=== PATIENT | female | born 1970 | race Caucasian/White ===

== ENCOUNTER 2024-01-07 13:50 | Outpatient (RCR) | payer MEDICAID, SELFPAY | END 2024-01-28 23:59 | disposition home or self-care (01) | LOC: CPTX 13:50 | PROVIDERS: PCP Student in an Organized Health Care Education/Training Program; Referring Provider Student in an Organized Health Care Education/Training Program; Visit Provider Student in an Organized Health Care Education/Training Program | DX: Z53.9 Procedure and treatment not carried out, unspecified reason (principal) ==

== ENCOUNTER 2025-02-09 13:05 | Outpatient (AMB) | payer MEDICAID, SELFPAY ==
--- NOTE | 2025-02-09 13:21 | PD.ORTHCLVIS ---
Vital signs 02/09/25 13:22 Height 1.73 m Height Method Stated Weight 104.128 kg Weight Measurement Method Standing Scale BMI 34.9 BP 128/85 H Blood Pressure Source Automatic Cuff Blood Pressure Location Right Lower Arm Position Sitting Respiration 19 Pulse 83 Pulse Source Monitor Temp 97.3 F Temp Source Temporal Artery Scan Pulse Oximetry (%) 94 L Oxygen Delivery Method Room Air Med/Allergies Allergies & Medications Allergies No Known Allergies Allergy (Verified 02/09/25 13:23) Medication Reconciliation metoprolol tartrate 25 mg tablet 25 mg PO ##0 09/15/13 [History Confirmed 02/09/25] meclizine 25 mg tablet 25 mg PO BID PRN dizziness #30 tabs 04/04/22 [Rx Confirmed 02/09/25] meloxicam 7.5 mg tablet 7.5 mg PO QDAY #45 tabs 02/09/25 [Rx] Exam Exam Patient is in no acute distress and is cooperative with the examination today. Breathing is nonlabored. Patient has a normal mood and affect. Bilateral extremities were evaluated and demonstrates sensation intact to light touch. Palpable pedal pulses are present. No significant edema is present. Bilateral hips were examined. The patient has no pain with log roll of the hips. Internal rotation to 30 degrees and external rotation to 30 degrees is painless. Negative FADIR. Right knee was examined today. The right knee is in valgus alignment. Range of motion from 0-120 degrees. Knee is stable to varus and valgus as well as AP translation with <5mm. Patient has a negative McMurrays. There is no pain with patellofemoral compression and no crepitus noted. The knee is nontender to palpation. Left knee was examined today. The left knee is in valgus alignment. Range of motion from 0-115 degrees. Knee is stable to varus and valgus as well as AP translation with <5mm. Patient has a negative McMurrays. There is no pain with patellofemoral compression and no crepitus noted. The knee is tender to palpation diffiusely. Assessment and Plan Problem List (1) Arthritis of both knees: Status: Acute Plan: Patient is a pleasant 54yo female with bilateral knee osteoarthritis. 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) MA Intake Visit Data Collection New Patient or Established: New Patient (never been to [facility]) Reason for Visit:: BILATERAL KNEE PAIN Seen by Clinical Staff ONLY (RN/MA): No Manager Room Required: No PCP or OBGYN visit in last 3 months: Yes Hx Now: No Do You Feel Safe at Home: Yes Authorities Contacted: N/A Questionairres Past Medical History Past Medical History Have you ever been diagnosed with any of the following: Respiratory Problems Smoking: No Smoking Exposure: No Subjective Visit Visit for: new patient and knee (BILATERAL) Immunization / Flu Flu Vaccine in the Last 12 Months: Yes Flu Vaccine Exclusion Criteria: Already Received History of Present Illness Chief complaint: bilateral knee pain Alisa is a 54 yo female with bilateral knee pain and osteoarthritis. She has not tried significant conservative treatment. She has tried only ibuprofen and no injections. Pain Pain level (0-10): 8 Pain duration: CONSTANT Pain location: inside (medial), outside (lateral) and anterior Pain quality: sharp and burning Pain timing: night, increases with activity and stairs Associated signs & symptoms: stiffness Ambulatory data Ambulatory device: none Treatments Improvement with previous injections: No Improvement with PT: No Improvement with NSAIDS: n/a Review of Systems Review of Systems: All systems negative unless otherwise noted in HPI.
[2025-02-09 13:22] VITALS: BP 128/85; PULSE 83; RESP 19; TEMP 36.3; O2SAT 94; BMI 34.9
--- NOTE | 2025-02-09 13:30 | XR_ITS ---
Examination: Bilateral knees 2 views Right lateral knee left knee 2 views Bilateral axial knees single view Technique: Bilateral AP knees standing single view, bilateral PA knees standing single view flexion Standing right lateral knee, left 2 views Bilateral axial knees single view total 6 views Exam date and time: February 09, 2025, 1335 hrs. Indications: Injury to the wrist 2.5 years ago, knee pain. Findings: Moderate osteopenia Mild to moderate bilateral tricompartment osteoarthritis, most severe medial joint space lateral joint space left knee No fractures Impression: Mild to moderate bilateral tricompartment osteoarthritis, most severe medial joint space right knee lateral joint space left knee
== END 2025-02-09 13:34 | disposition home or self-care (01) ==
LOC: HODSRG 13:05
PROVIDERS: PCP Student in an Organized Health Care Education/Training Program; Referring Provider Student in an Organized Health Care Education/Training Program; Supervising Provider Orthopaedic Surgery Adult Reconstructive Orthopaedic Surgery; Visit Provider Orthopaedic Surgery Adult Reconstructive Orthopaedic Surgery
DX: M17.0 Bilateral primary osteoarthritis of knee (principal)
CPT/HCPCS: 73564; 99204; G0463

== ENCOUNTER 2025-03-03 13:10 | Outpatient (AMB) | payer MEDICAID, SELFPAY ==
[2025-03-03 13:52] VITALS: BP 123/78; PULSE 69; RESP 18; TEMP 36.3; O2SAT 96; BMI 34.6
--- NOTE | 2025-03-03 13:52 | ORTHONT_ITS ---
Vital signs 03/03/25 13:52 Height 1.73 m Height Method Stated Weight 103.532 kg Weight Measurement Method Standing Scale BMI 34.6 BP 123/78 Blood Pressure Source Automatic Cuff Blood Pressure Location Right Upper Arm Position Sitting Respiration 18 Pulse 69 Pulse Source Monitor Temp 97.3 F Temp Source Temporal Artery Scan Pulse Oximetry (%) 96 Oxygen Delivery Method Room Air Med/Allergies Allergies & Medications Allergies No Known Allergies Allergy (Verified 03/03/25 13:53) Medication Reconciliation metoprolol tartrate 25 mg tablet 25 mg PO ##0 09/15/13 [History Confirmed 03/03/25] meclizine 25 mg tablet 25 mg PO BID PRN dizziness #30 tabs 04/04/22 [Rx Confirmed 03/03/25] meloxicam 7.5 mg tablet 7.5 mg PO QDAY #45 tabs 02/09/25 [Rx Confirmed 03/03/25] Exam Exam Patient is in no acute distress and is cooperative with the examination today. Breathing is nonlabored. Patient has a normal mood and affect. Bilateral extremities were evaluated and demonstrates sensation intact to light touch. Palpable pedal pulses are present. No significant edema is present. Bilateral hips were examined. The patient has no pain with log roll of the hips. Internal rotation to 30 degrees and external rotation to 30 degrees is painless. Negative FADIR. Right knee was examined today. The right knee is in valgus alignment. Range of motion from 0-120 degrees. Knee is stable to varus and valgus as well as AP translation with <5mm. Patient has a negative McMurrays. There is no pain with patellofemoral compression and no crepitus noted. The knee is nontender to palpation. Left knee was examined today. The left knee is in valgus alignment. Range of motion from 0-115 degrees. Knee is stable to varus and valgus as well as AP translation with <5mm. Patient has a negative McMurrays. There is no pain with patellofemoral compression and no crepitus noted. The knee is tender to palpation diffiusely. Xrays demonstrate mild to moderate arthritis of the bilateral knees Assessment and Plan Problem List (1) Arthritis of both knees: Status: Acute Plan: Patient is a pleasant 54yo female with bilateral knee osteoarthritis of moderate severity. She has not tried significant conservative treamtent. She has been hesitant to take meloxicam due to the side effects on the label. We also discussed weight loss in great detail. We will see her on an as needed basis, Office Procedures GNS Level of Care Nursing/Assessment Patient Status: Established Patient Nursing Assessment/Reassesment: Medication Reconciliation and Update PMH in EMR Coordination of Care: Complex Care and Chronic Disease 1-5, Consent,records obtained, informed consent, Education Simp Pt/Fam, Results/Orders obtained and Staff clarify orders Established Patient Charge Established Patient Point Assignment: 75 Established Patient Point Charge: EP Level 2 (40-75) MA Intake Visit Data Collection New Patient or Established: Established Patient (seen at [facility] within 3 years) Reason for Visit:: BILAT KNEE XRAY RESULT Seen by Clinical Staff ONLY (RN/MA): No Senior Technical Project Manager Required: No PCP or OBGYN visit in last 3 months: Yes Hx Now: No Do You Feel Safe at Home: Yes Authorities Contacted: N/A Questionairres Past Medical History Past Medical History Have you ever been diagnosed with any of the following: Respiratory Problems Smoking: No Smoking Cessation Counseling: No Smoking Exposure: No Subjective Visit Visit for: follow up visit and knee (BILATERAL ) Immunization / Flu Flu Vaccine in the Last 12 Months: Yes Flu Vaccine Exclusion Criteria: Already Received History of Present Illness Chief complaint: bilateral knee pain Alisa is a 54 yo female with bilateral knee pain and osteoarthritis. She has not tried significant conservative treatment. She has tried only ibuprofen and no injections. Personal History Red flag PMH: none Pain Pain level (0-10): 7 Pain duration: 2.5 YEARS Pain location: anterior Pain quality: sharp and aching Pain timing: increases with activity Associated signs & symptoms: stiffness Ambulatory data Ambulatory device: none Walking distance (minutes): 60 Treatments Number of previous injections: 0 Improvement with previous injections: No Number of Physical Therapy sessions: 5 Improvement with PT: No Improvement with NSAIDS: n/a Review of Systems Review of Systems: All systems negative unless otherwise noted in HPI.
== END 2025-03-03 14:12 | disposition home or self-care (01) ==
LOC: HODSRG 13:10
PROVIDERS: PCP Student in an Organized Health Care Education/Training Program; Referring Provider Student in an Organized Health Care Education/Training Program; Supervising Provider Orthopaedic Surgery Adult Reconstructive Orthopaedic Surgery; Visit Provider Orthopaedic Surgery Adult Reconstructive Orthopaedic Surgery
DX: M17.0 Bilateral primary osteoarthritis of knee (principal); M25.562 Pain in left knee; M25.561 Pain in right knee
CPT/HCPCS: 99212; G0463